=== PATIENT | male | born 1995 | race Caucasian/White ===

== ENCOUNTER 2018-01-02 12:27 | Emergency (ER) | payer OTHER ==
[2018-01-02] MEDS: GASTROGRAFIN SOLUTION 30ML PO ×2 (13:55→14:25)
[2018-01-02 14:05] LABS: BASO % 0.6 % (0.0-1.0); EOS # 0.1 10^3/uL (0.0-0.50); EOS % 2.2 % (0.0-3.0); HEMATOCRIT 45.1 % (42.0-52.0); HEMOGLOBIN 15.5 g/dl (14.0-18.0); IMMATURE GRANULOCYTE % 0.2 % (0-3.0); LYMPH # 2.3 10^3/uL (1.5-6.5); LYMPH % 35.9 % (24.0-44.0); MEAN CORPUSCULAR HGB CONC 34.4 g/dl (32.0-36.5); MEAN CORPUSCULAR VOLUME 84.5 fl (80.0-96.0); MONO # 0.6 10^3/uL (0.0-0.8); MONO % 9.1 % (0.0-5.0); NEUTROPHILS # 3.4 10^3/uL (1.8-7.7); PLATELET COUNT, AUTOMATED 173 10^3/uL (150-450); RED BLOOD COUNT 5.34 10^6/uL (4.30-6.10); RED CELL DISTRIBUTION WIDTH 12.7 % (11.5-14.5); WHITE BLOOD COUNT 6.5 10^3/uL (4.0-10.0)
[2018-01-02 14:14] LABS: ANION GAP 3 MEQ/L (8-16); BLOOD UREA NITROGEN 20 MG/DL (7-18); CALCIUM LEVEL 9.1 MG/DL (8.5-10.1); CARBON DIOXIDE LEVEL 32 MEQ/L (21-32); CHLORIDE LEVEL 106 MEQ/L (98-107); CREATININE FOR GFR 1.03 MG/DL (0.70-1.30); GLOMERULAR FILTRATION RATE > 60.0 (>60); GLUCOSE, FASTING 79 MG/DL (70-100); POTASSIUM SERUM 3.5 MEQ/L (3.5-5.1); SODIUM LEVEL 141 MEQ/L (136-145)
[2018-01-02 14:21] LABS: INR 1.17; PROTHROMBIN TIME 15.1 SECONDS (12.4-14.5)
[2018-01-02 14:22] LABS: PARTIAL THROMBOPLASTIN TIME 30.1 SECONDS (26.8-37.9)
[2018-01-02] MEDS ORDERED: ISOVUE-370 76% 100ML VIAL (Q9967) As Ordered (15:18)
== END 2018-01-02 16:41 | disposition home or self-care (01) ==
LOC: M ED 12:27
DX: S30.1XXA Contusion of abdominal wall, initial encounter (principal); R10.32 Left lower quadrant pain; W20.8XXA Other cause of strike by thrown, projected or falling object, initial encounter; Y92.9 Unspecified place or not applicable; Y93.9 Activity, unspecified; M43.06 Spondylolysis, lumbar region; M51.27 Other intervertebral disc displacement, lumbosacral region
CPT/HCPCS: Q9963